=== PATIENT | female | born 1940 | race Caucasian/White ===

== ENCOUNTER 2020-09-17 10:42 | Inpatient (IN) | payer OTHER ==
[~2020-09-17] VITALS: Ht 165.1 cm; Wt 78.7 kg
[~2020-09-17 10:42] MED LIST: AMLO10TA13; CALC-332 OR; CEFD300C2; CHOL50006 PO; CRANPOW XX; FLUT110A; HYDR500T13; LOSA-39; MAGN250T19 PO; OMEG100078 PO; ZINC50TA27 PO
[2020-09-17] MEDS ORDERED: SODIUM CHLORIDE 0.9% 1,000 ML IVB ONE (12:15)
[2020-09-17] MEDS ORDERED: PANTOPRAZOLE 40 MG/10 ML VIAL INJ IV ONE ×2 (12:15→17:15)
[2020-09-17 12:25] LABS: Basophils # (auto) 0 10 ^3/uL (0-0.2); Basophils % (auto) 0.2 % (0.0-2.0); Eosinophils # (auto) 0 10 ^3/uL (0-0.8); Eosinophils % (auto) 0.1 % (0.0-7.0); Hematocrit 38.9 % (36.0-46.0); Hemoglobin 13.2 g/dL (12.2-16.2); Lymphocytes # (auto) 0.8 10 ^3/uL (0.4-5.4); Lymphocytes % (auto) 12.3 % (10.0-50.0); Mean Corpuscular Hemoglobin 30.8 pg (28.0-32.0); Mean Corpuscular Hgb Conc. 33.9 g/dL (32.0-36.0); Mean Corpuscular Volume 90.9 fL (80.0-100.0); Monocytes # (auto) 0.5 10 ^3/uL (0-1.3); Monocytes % (auto) 8.1 % (0.0-12.0); Neutrophils % (auto) 79.3 % (37.0-80.0); Nucleated Red Blood Cells % 0.1 %; Platelet Count (auto) 194 10^3/uL (140-450); Red Blood Cells 4.28 10^6/uL (4.0-5.20); Red Cell Distribution Width 13.5 % (11.8-14.3); White Blood Cell 6.3 10^3/uL (4.4-10.8)
[2020-09-17 12:45] LABS: INR 2.9 (0.9-1.15); Partial Thromboplastin Time 54.1 sec (23.0-31.2)
[2020-09-17 13:37] LABS: Chloride 101 mmol/L (98-107); Potassium 4.3 mmol/L (3.5-5.1); Sodium 133 mmol/L (136-145)
[2020-09-17 13:58] LABS: Alanine Aminotransferase 28 U/L (13-56); Albumin 2.9 g/dL (3.4-5.0); Alkaline Phosphatase 56 U/L (45-117); Anion Gap 6 (5-15); Aspartate Aminotransferase 35 U/L (15-37); Bilirubin, Total 0.3 mg/dL (0.2-1.0); Blood Urea Nitrogen 10 mg/dL (7-18); Calcium 8.2 mg/dL (8.5-10.1); Carbon Dioxide 26 mmol/L (21-32); GFR African American 93 mL/min; GFR Non-African American 77 mL/min; Glucose 98 mg/dL (74-106); Total Protein 6.8 g/dL (6.4-8.2)
[2020-09-17] MEDS ORDERED: AZITHROMYCIN 500MG/ 250ML 250 ML IV ONE (14:00)
[2020-09-17 14:32] LABS: Magnesium 2.7 mg/dL (1.6-2.6)
[2020-09-17] MEDS ORDERED: metroNIDAZOLE 500MG/100ML 100 ML IV ONE (14:45)
[2020-09-17] MEDS ORDERED: MORPHINE SULF INJ 2 MG/ML SYRINGE 1ML IV PRN (16:00)
[2020-09-17] MEDS ORDERED: NITROGLYCERIN 0.4 MG SL TAB SL PRN (16:00)
[2020-09-17] MEDS ORDERED: LACTULOSE 20Gm/30ML SOLN PO PRN (17:15)
[2020-09-17] MEDS ORDERED: ACETAMINOPHEN 500 MG TAB PO PRN (17:15)
[2020-09-17] MEDS: DOXYCYCLINE 100MG/250ML 250 ML IV SCH (18:50)
[2020-09-17] MEDS: SODIUM CHLORIDE 0.9% 1,000 ML IV SCH (18:52)
[2020-09-17] MEDS ORDERED: diphenhdrAMINE HCL 50 MG/1 ML VL IV PRN (19:00)
[2020-09-17] MEDS ORDERED: REMDESIVIR PER PHARMACY 0 ML IV SCH (19:00)
[2020-09-17] MEDS: MORPHINE SULF INJ 2 MG/ML SYRINGE 1ML IV PRN (20:11)
[2020-09-17] MEDS: ONDANSETRON HCL 4 MG/2 ML VIAL IV PRN (20:12)
[2020-09-17] MEDS: BUDESONIDE (INHALATION) 180 MCG IH IN SCH (22:00)
[2020-09-17] MEDS ORDERED: ENOXAPARIN SOD 40 MG/0.4 ML SYRINGE SC SCH (22:00)
[2020-09-17] MEDS: FAMOTIDINE (10MG/ML) 2ML VL IV SCH (22:35)
[2020-09-17] MEDS: traMADol HCL 50 MG TAB PO PRN (23:08)
[2020-09-17 23:59] LABS: Hematocrit 38.9 % (36.0-46.0); Hemoglobin 12.9 g/dL (12.2-16.2)
[2020-09-18] MEDS: metroNIDAZOLE 500MG/100ML 100 ML IV SCH ×4 (01:00→23:30)
[2020-09-18] MEDS: DOXYCYCLINE 100MG/250ML 250 ML IV SCH ×2 (05:12→20:28)
[2020-09-18] MEDS: SODIUM CHLORIDE 0.9% 1,000 ML IV SCH ×2 (06:35→20:29)
[2020-09-18] MEDS: traMADol HCL 50 MG TAB PO PRN (07:11)
[2020-09-18 07:48] LABS: Basophils # (auto) 0 10 ^3/uL (0-0.2); Basophils % (auto) 0.4 % (0.0-2.0); Eosinophils # (auto) 0 10 ^3/uL (0-0.8); Eosinophils % (auto) 0.4 % (0.0-7.0); Lymphocytes # (auto) 1.1 10 ^3/uL (0.4-5.4); Lymphocytes % (auto) 19.2 % (10.0-50.0); Mean Corpuscular Hemoglobin 30.3 pg (28.0-32.0); Mean Corpuscular Hgb Conc. 33.5 g/dL (32.0-36.0); Mean Corpuscular Volume 90.6 fL (80.0-100.0); Monocytes # (auto) 0.7 10 ^3/uL (0-1.3); Monocytes % (auto) 12.6 % (0.0-12.0); Neutrophils # (auto) 3.7 10 ^3/uL (1.6-8.6); Neutrophils % (auto) 67.4 % (37.0-80.0); Platelet Count (auto) 175 10^3/uL (140-450); Red Blood Cells 3.97 10^6/uL (4.0-5.20); Red Cell Distribution Width 13.3 % (11.8-14.3); White Blood Cell 5.6 10^3/uL (4.4-10.8)
[2020-09-18 07:55] LABS: Potassium 3.7 mmol/L (3.5-5.1)
[2020-09-18 08:01] LABS: Albumin 2.5 g/dL (3.4-5.0); BUN/Creatinine Ratio 15.9; Bilirubin, Total 0.2 mg/dL (0.2-1.0); Calcium 7.2 mg/dL (8.5-10.1); Total Protein 5.8 g/dL (6.4-8.2)
[2020-09-18] MEDS: PANTOPRAZOLE 40 MG TAB PO SCH ×2 (09:31→22:04)
[2020-09-18] MEDS: FAMOTIDINE (10MG/ML) 2ML VL IV SCH ×2 (09:31→22:04)
[2020-09-18] MEDS: CHOLECALCIFEROL (VITD3) 2,000 UNIT CAP PO SCH (09:31)
[2020-09-18] MEDS: ZINC SULFATE 220mg CAP or TAB PO SCH (09:31)
[2020-09-18] MEDS: DexAMETHasone SOD PHOS 10MG/1ML VIAL INJ IV SCH (09:31)
[2020-09-18] MEDS: ASCORBIC ACID 1,000 MG TAB PO SCH (09:31)
[2020-09-18] MEDS: BUDESONIDE (INHALATION) 180 MCG IH IN SCH ×2 (12:35→21:18)
[2020-09-18] MEDS ORDERED: REMDESIVIR 200 MG in NS 210ml LOADING DOSE ADULT IV ONE (15:00)
[2020-09-18] MEDS: ALBUTEROL SULF HFA 90MCG INH 200DOSE IN PRN (21:19)
[2020-09-18 22:00] VITALS: BP 117/62
[2020-09-19] MEDS: DOXYCYCLINE 100MG/250ML 250 ML IV SCH ×2 (05:03→21:01)
[2020-09-19 06:00] VITALS: BP 113/66
[2020-09-19] MEDS: MORPHINE SULF INJ 2 MG/ML SYRINGE 1ML IV PRN (07:15)
[2020-09-19] MEDS: metroNIDAZOLE 500MG/100ML 100 ML IV SCH ×3 (07:22→23:39)
[2020-09-19 07:51] LABS: Basophils # (auto) 0 10 ^3/uL (0-0.2); Basophils % (auto) 0.1 % (0.0-2.0); Eosinophils # (auto) 0 10 ^3/uL (0-0.8); Hematocrit 37.2 % (36.0-46.0); Hemoglobin 12.7 g/dL (12.2-16.2); Lymphocytes # (auto) 0.8 10 ^3/uL (0.4-5.4); Lymphocytes % (auto) 9.5 % (10.0-50.0); Mean Corpuscular Hemoglobin 30.7 pg (28.0-32.0); Mean Corpuscular Hgb Conc. 34.1 g/dL (32.0-36.0); Mean Corpuscular Volume 90.2 fL (80.0-100.0); Monocytes % (auto) 12.1 % (0.0-12.0); Neutrophils # (auto) 6.7 10 ^3/uL (1.6-8.6); Neutrophils % (auto) 78.3 % (37.0-80.0); Platelet Count (auto) 214 10^3/uL (140-450); Red Blood Cells 4.12 10^6/uL (4.0-5.20); Red Cell Distribution Width 13.1 % (11.8-14.3); White Blood Cell 8.5 10^3/uL (4.4-10.8)
[2020-09-19 08:09] LABS: INR 3.36 (0.9-1.15); Partial Thromboplastin Time 59.9 sec (23.0-31.2)
[2020-09-19 08:13] LABS: Potassium 3.8 mmol/L (3.5-5.1)
[2020-09-19 08:23] LABS: Albumin 2.5 g/dL (3.4-5.0); BUN/Creatinine Ratio 15.5; Bilirubin, Total 0.3 mg/dL (0.2-1.0); Magnesium 2.4 mg/dL (1.6-2.6); Total Protein 6.5 g/dL (6.4-8.2)
[2020-09-19] MEDS: BUDESONIDE (INHALATION) 180 MCG IH IN SCH ×2 (10:00→22:24)
[2020-09-19] MEDS: ALBUTEROL SULF HFA 90MCG INH 200DOSE IN PRN (10:00)
[2020-09-19] MEDS: PANTOPRAZOLE 40 MG TAB PO SCH ×2 (12:35→22:15)
[2020-09-19] MEDS: CHOLECALCIFEROL (VITD3) 2,000 UNIT CAP PO SCH (12:35)
[2020-09-19] MEDS: ASCORBIC ACID 1,000 MG TAB PO SCH (12:35)
[2020-09-19] MEDS: ZINC SULFATE 220mg CAP or TAB PO SCH (12:36)
[2020-09-19] MEDS: SODIUM CHLORIDE 0.9% 1,000 ML IV SCH ×2 (13:01→23:40)
[2020-09-19] MEDS: DexAMETHasone SOD PHOS 10MG/1ML VIAL INJ IV SCH (13:02)
[2020-09-19] MEDS: FAMOTIDINE (10MG/ML) 2ML VL IV SCH ×2 (13:02→22:18)
[2020-09-19] MEDS: REMDESIVIR 100 MG in SODIUM CHL 0.9% 250 ML IV SCH (17:49)
[2020-09-19 23:03] VITALS: BP 115/75
[2020-09-19 23:10] VITALS: BP 115/75
[2020-09-20] MEDS ORDERED: DEXL60CA4 PO (01:21)
[2020-09-20] MEDS ORDERED: CHOL20007 PO (01:21)
[2020-09-20] MEDS ORDERED: WARF2TAB49 PO (01:21)
[2020-09-20] MEDS ORDERED: BUDE0.5S IN (01:21)
[2020-09-20] MEDS ORDERED: MULTPOW OR (01:21)
[2020-09-20] MEDS ORDERED: MAGN400C2 PO (01:21)
[2020-09-20] MEDS ORDERED: LATA0.0019 EACHEYE (01:21)
[2020-09-20] MEDS ORDERED: CALC667C5 PO (01:21)
[2020-09-20] MEDS ORDERED: GEN03OS EACH EAR (01:21)
[2020-09-20] MEDS ORDERED: HYDR-4833 PO (01:21)
[2020-09-20] MEDS ORDERED: LOSA-39 PO (01:21)
[2020-09-20] MEDS ORDERED: AML5T PO (01:21)
[2020-09-20] MEDS ORDERED: ASCO250C8 PO (01:21)
[2020-09-20] MEDS ORDERED: MULT-551 OR (01:22)
[2020-09-20] MEDS: traMADol HCL 50 MG TAB PO PRN ×3 (03:46→18:51)
[2020-09-20] MEDS: DOXYCYCLINE 100MG/250ML 250 ML IV SCH ×2 (05:08→17:01)
[2020-09-20 06:11] LABS: Potassium 3.7 mmol/L (3.5-5.1)
[2020-09-20 06:23] LABS: Albumin 2.6 g/dL (3.4-5.0); Bilirubin, Total 0.3 mg/dL (0.2-1.0); Total Protein 6.2 g/dL (6.4-8.2)
[2020-09-20] MEDS: metroNIDAZOLE 500MG/100ML 100 ML IV SCH ×4 (08:42→23:20)
[2020-09-20] MEDS: DexAMETHasone SOD PHOS 10MG/1ML VIAL INJ IV SCH (08:57)
[2020-09-20] MEDS: FAMOTIDINE (10MG/ML) 2ML VL IV SCH ×3 (08:57→23:21)
[2020-09-20] MEDS: ASCORBIC ACID 1,000 MG TAB PO SCH ×2 (08:59→09:12)
[2020-09-20] MEDS: CHOLECALCIFEROL (VITD3) 2,000 UNIT CAP PO SCH ×2 (08:59→09:12)
[2020-09-20] MEDS: PANTOPRAZOLE 40 MG TAB PO SCH ×3 (08:59→22:16)
[2020-09-20] MEDS: ZINC SULFATE 220mg CAP or TAB PO SCH ×2 (09:00→09:11)
[2020-09-20] MEDS: BUDESONIDE (INHALATION) 180 MCG IH IN SCH (10:00)
[2020-09-20] MEDS ORDERED: ALBU1.257 IN (10:13)
[2020-09-20] MEDS: SODIUM CHLORIDE 0.9% 1,000 ML IV SCH (11:55)
[2020-09-20 13:00] VITALS: BP 137/70
[2020-09-20] MEDS ORDERED: ALBUTEROL SULF 2.5 MG/0.5ML(0.5%) NEB SOLN NEB PRN ×2 (14:45→15:30)
[2020-09-20] MEDS: REMDESIVIR 100 MG in SODIUM CHL 0.9% 250 ML IV SCH (15:00)
[2020-09-21] VITALS: BP 157/76
[2020-09-21] MEDS: SODIUM CHLORIDE 0.9% 1,000 ML IV SCH ×3 (01:40→23:29)
[2020-09-21] MEDS: metroNIDAZOLE 500MG/100ML 100 ML IV SCH ×3 (06:01→22:06)
[2020-09-21 06:13] LABS: Hematocrit 39.6 % (36.0-46.0); Hemoglobin 13.2 g/dL (12.2-16.2); Mean Corpuscular Hemoglobin 30.2 pg (28.0-32.0); Mean Corpuscular Hgb Conc. 33.4 g/dL (32.0-36.0); Mean Corpuscular Volume 90.6 fL (80.0-100.0); Platelet Count (auto) 352 10^3/uL (140-450); Red Blood Cells 4.38 10^6/uL (4.0-5.20); Red Cell Distribution Width 13.4 % (11.8-14.3); White Blood Cell 10.3 10^3/uL (4.4-10.8)
[2020-09-21 06:22] LABS: Basophils % (manual) 0 (0.0-2.0); Blast Cells 0; Eosinophils % (manual) 0 (0-7); Metamyelocytes % 0; Myelocytes % 0; Promyelocytes % 0; Reactive Lymphocytes 0
[2020-09-21 06:22] LABS: Albumin 2.6 g/dL (3.4-5.0); Potassium 3.4 mmol/L (3.5-5.1)
[2020-09-21 06:28] LABS: Bilirubin, Total 0.4 mg/dL (0.2-1.0); Calcium 8.1 mg/dL (8.5-10.1); Magnesium 1.9 mg/dL (1.6-2.6); Total Protein 6.2 g/dL (6.4-8.2)
[2020-09-21] MEDS: ALBUTEROL SULF 2.5 MG/0.5ML(0.5%) NEB SOLN NEB SCH ×2 (06:47→10:00)
[2020-09-21 07:17] LABS: Band Neutrophils % (manual) 3; Lymphocytes % (manual) 10 (10.0-50.0); Monocytes % (manual) 9 (0-12)
[2020-09-21] MEDS: DOXYCYCLINE 100MG/250ML 250 ML IV SCH ×2 (07:40→16:55)
[2020-09-21] MEDS: ONDANSETRON HCL 4 MG/2 ML VIAL IV PRN ×2 (08:17→17:23)
[2020-09-21 09:00] VITALS: BP 138/70
[2020-09-21] MEDS ORDERED: POTASSIUM CHL 20 Meq TABLET PO ONE (09:30)
[2020-09-21] MEDS: ZINC SULFATE 220mg CAP or TAB PO SCH (09:52)
[2020-09-21] MEDS: CHOLECALCIFEROL (VITD3) 2,000 UNIT CAP PO SCH (09:52)
[2020-09-21] MEDS: ASCORBIC ACID 1,000 MG TAB PO SCH (09:52)
[2020-09-21] MEDS: PANTOPRAZOLE 40 MG TAB PO SCH ×2 (09:52→22:00)
[2020-09-21] MEDS: DexAMETHasone SOD PHOS 10MG/1ML VIAL INJ IV SCH (10:00)
[2020-09-21] MEDS: BUDESONIDE (INHALATION) 180 MCG IH IN SCH ×2 (10:00→19:51)
[2020-09-21] MEDS: FAMOTIDINE (10MG/ML) 2ML VL IV SCH (10:00)
[2020-09-21 13:00] VITALS: BP 144/66
[2020-09-21] MEDS: REMDESIVIR 100 MG in SODIUM CHL 0.9% 250 ML IV SCH (15:00)
[2020-09-21 16:00] VITALS: BP 144/57
[2020-09-21] MEDS: traMADol HCL 50 MG TAB PO PRN (18:18)
[2020-09-21] MEDS: ALBUTEROL SULF HFA 90MCG INH 200DOSE IN PRN (19:51)
[2020-09-21] MEDS: PANTOPRAZOLE 40 MG/10 ML VIAL INJ IV SCH (22:07)
[2020-09-22] VITALS: BP 143/72
[2020-09-22] MEDS: DOXYCYCLINE 100MG/250ML 250 ML IV SCH ×2 (04:58→17:12)
[2020-09-22] MEDS: BUDESONIDE (INHALATION) 180 MCG IH IN SCH (06:47)
[2020-09-22 06:51] LABS: Hemoglobin 13.7 g/dL (12.2-16.2); Mean Corpuscular Hemoglobin 30.2 pg (28.0-32.0); Mean Corpuscular Hgb Conc. 33.5 g/dL (32.0-36.0); Platelet Count (auto) 372 10^3/uL (140-450); Red Blood Cells 4.55 10^6/uL (4.0-5.20); Red Cell Distribution Width 13.5 % (11.8-14.3); White Blood Cell 12.6 10^3/uL (4.4-10.8)
[2020-09-22] MEDS: metroNIDAZOLE 500MG/100ML 100 ML IV SCH ×3 (06:52→22:35)
[2020-09-22 07:12] LABS: Potassium 3.6 mmol/L (3.5-5.1)
[2020-09-22 07:45] LABS: Albumin 2.7 g/dL (3.4-5.0); BUN/Creatinine Ratio 26.6; Bilirubin, Total 0.5 mg/dL (0.2-1.0); Calcium 8.2 mg/dL (8.5-10.1); Total Protein 6.4 g/dL (6.4-8.2)
[2020-09-22 07:57] LABS: Basophils % (manual) 0 (0.0-2.0); Blast Cells 0; Eosinophils % (manual) 0 (0-7); Metamyelocytes % 0; Myelocytes % 0; Promyelocytes % 0; Reactive Lymphocytes 0
[2020-09-22 08:00] VITALS: BP 149/65
[2020-09-22] MEDS: ALBUTEROL SULF 2.5 MG/0.5ML(0.5%) NEB SOLN NEB SCH (10:00)
[2020-09-22] MEDS: ZINC SULFATE 220mg CAP or TAB PO SCH (10:33)
[2020-09-22] MEDS: PANTOPRAZOLE 40 MG TAB PO SCH ×2 (10:33→20:51)
[2020-09-22] MEDS: DexAMETHasone SOD PHOS 10MG/1ML VIAL INJ IV SCH (10:33)
[2020-09-22] MEDS: PANTOPRAZOLE 40 MG/10 ML VIAL INJ IV SCH ×2 (10:33→22:35)
[2020-09-22] MEDS: ASCORBIC ACID 1,000 MG TAB PO SCH (10:33)
[2020-09-22] MEDS: CHOLECALCIFEROL (VITD3) 2,000 UNIT CAP PO SCH (10:34)
[2020-09-22 12:36] LABS: Band Neutrophils % (manual) 11; Lymphocytes % (manual) 16 (10.0-50.0); Monocytes % (manual) 8 (0-12)
[2020-09-22] MEDS ORDERED: ALPRAZolam 0.25 MG TAB PO PRN (14:00)
[2020-09-22] MEDS: REMDESIVIR 100 MG in SODIUM CHL 0.9% 250 ML IV SCH (15:23)
[2020-09-22 16:00] VITALS: BP 153/81
[2020-09-22] MEDS: MORPHINE SULF INJ 2 MG/ML SYRINGE 1ML IV PRN (16:20)
[2020-09-22] MEDS: SODIUM CHLORIDE 0.9% 1,000 ML IV SCH (17:12)
[2020-09-22] MEDS: Ensure Enlive Strawberry 8oz Bottle PO SCH (17:54)
[2020-09-22] MEDS: ONDANSETRON HCL 4 MG/2 ML VIAL IV PRN (20:50)
[2020-09-23] VITALS: BP 144/72
[2020-09-23] MEDS: DOXYCYCLINE 100MG/250ML 250 ML IV SCH ×2 (04:30→19:22)
[2020-09-23] MEDS: SODIUM CHLORIDE 0.9% 1,000 ML IV SCH ×2 (06:35→19:55)
[2020-09-23] MEDS: metroNIDAZOLE 500MG/100ML 100 ML IV SCH ×3 (06:45→21:12)
[2020-09-23 08:00] VITALS: BP 148/67
[2020-09-23] MEDS: MORPHINE SULF INJ 2 MG/ML SYRINGE 1ML IV PRN ×3 (09:01→20:58)
[2020-09-23] MEDS: PANTOPRAZOLE 40 MG TAB PO SCH ×2 (09:12→21:12)
[2020-09-23] MEDS: PANTOPRAZOLE 40 MG/10 ML VIAL INJ IV SCH ×2 (09:12→21:12)
[2020-09-23] MEDS: Ensure Enlive Strawberry 8oz Bottle PO SCH ×3 (09:13→18:42)
[2020-09-23] MEDS: DexAMETHasone SOD PHOS 10MG/1ML VIAL INJ IV SCH (09:13)
[2020-09-23] MEDS: ZINC SULFATE 220mg CAP or TAB PO SCH ×2 (09:13→09:33)
[2020-09-23] MEDS: ASCORBIC ACID 1,000 MG TAB PO SCH (09:14)
[2020-09-23] MEDS: CHOLECALCIFEROL (VITD3) 2,000 UNIT CAP PO SCH (09:14)
[2020-09-23] MEDS: BUDESONIDE (INHALATION) 180 MCG IH IN SCH (14:01)
[2020-09-23] MEDS: ALBUTEROL SULF 2.5 MG/0.5ML(0.5%) NEB SOLN NEB SCH (15:15)
[2020-09-23 16:00] VITALS: BP 145/76
[2020-09-23] MEDS: REMDESIVIR 100 MG in SODIUM CHL 0.9% 250 ML IV SCH (18:42)
[2020-09-23 20:00] VITALS: BP 146/60
[2020-09-23 22:00] VITALS: BP 146/60
[2020-09-24] MEDS: DOXYCYCLINE 100MG/250ML 250 ML IV SCH ×2 (04:45→17:07)
[2020-09-24 05:27] LABS: Potassium 3.3 mmol/L (3.5-5.1)
[2020-09-24 05:30] LABS: INR 2.55 (0.9-1.15)
[2020-09-24 05:31] LABS: Albumin 2.4 g/dL (3.4-5.0); BUN/Creatinine Ratio 33.9; Calcium 7.8 mg/dL (8.5-10.1)
[2020-09-24 05:34] LABS: Bilirubin, Total 0.5 mg/dL (0.2-1.0); Total Protein 5.8 g/dL (6.4-8.2)
[2020-09-24] MEDS: metroNIDAZOLE 500MG/100ML 100 ML IV SCH ×3 (06:38→21:42)
[2020-09-24 08:00] VITALS: BP 156/73
[2020-09-24] MEDS: DexAMETHasone SOD PHOS 10MG/1ML VIAL INJ IV SCH (08:58)
[2020-09-24] MEDS: PANTOPRAZOLE 40 MG/10 ML VIAL INJ IV SCH ×2 (08:58→21:42)
[2020-09-24] MEDS: ASCORBIC ACID 1,000 MG TAB PO SCH (08:58)
[2020-09-24] MEDS: PANTOPRAZOLE 40 MG TAB PO SCH ×2 (08:58→20:52)
[2020-09-24] MEDS: CHOLECALCIFEROL (VITD3) 2,000 UNIT CAP PO SCH (08:59)
[2020-09-24] MEDS: Ensure Enlive Strawberry 8oz Bottle PO SCH ×3 (09:09→18:05)
[2020-09-24] MEDS: BUDESONIDE (INHALATION) 180 MCG IH IN SCH ×3 (09:11→19:45)
[2020-09-24] MEDS: ALBUTEROL SULF 2.5 MG/0.5ML(0.5%) NEB SOLN NEB SCH ×3 (09:11→19:45)
[2020-09-24] MEDS: MORPHINE SULF INJ 2 MG/ML SYRINGE 1ML IV PRN ×3 (09:20→20:29)
[2020-09-24] MEDS: ZINC SULFATE 220mg CAP or TAB PO SCH (10:00)
[2020-09-24] MEDS: SODIUM CHLORIDE 0.9% 1,000 ML IV SCH ×2 (11:51→21:43)
[2020-09-24] MEDS ORDERED: POTASSIUM CHL 20 Meq TABLET PO ONE (12:45)
[2020-09-24 15:41] VITALS: BP 151/76
[2020-09-25] VITALS: BP 155/79
[2020-09-25] MEDS: DOXYCYCLINE 100MG/250ML 250 ML IV SCH ×2 (04:15→16:59)
[2020-09-25] MEDS: metroNIDAZOLE 500MG/100ML 100 ML IV SCH ×3 (06:24→21:29)
[2020-09-25 06:43] LABS: Potassium 3.7 mmol/L (3.5-5.1)
[2020-09-25 06:51] LABS: Albumin 2.4 g/dL (3.4-5.0); BUN/Creatinine Ratio 28.8; Bilirubin, Total 0.5 mg/dL (0.2-1.0); Calcium 7.7 mg/dL (8.5-10.1); Total Protein 5.7 g/dL (6.4-8.2)
[2020-09-25] MEDS: BUDESONIDE (INHALATION) 180 MCG IH IN SCH ×2 (07:23→19:30)
[2020-09-25 08:00] VITALS: BP 146/68
[2020-09-25] MEDS: Ensure Enlive Strawberry 8oz Bottle PO SCH ×3 (08:00→17:59)
[2020-09-25] MEDS: MORPHINE SULF INJ 2 MG/ML SYRINGE 1ML IV PRN ×3 (08:05→20:39)
[2020-09-25] MEDS: ZINC SULFATE 220mg CAP or TAB PO SCH (10:00)
[2020-09-25] MEDS: CHOLECALCIFEROL (VITD3) 2,000 UNIT CAP PO SCH (10:43)
[2020-09-25] MEDS: DexAMETHasone SOD PHOS 10MG/1ML VIAL INJ IV SCH (10:43)
[2020-09-25] MEDS: PANTOPRAZOLE 40 MG/10 ML VIAL INJ IV SCH ×2 (10:43→21:29)
[2020-09-25] MEDS: PANTOPRAZOLE 40 MG TAB PO SCH ×2 (10:44→21:29)
[2020-09-25] MEDS: SODIUM CHLORIDE 0.9% 1,000 ML IV SCH (10:44)
[2020-09-25] MEDS: ASCORBIC ACID 1,000 MG TAB PO SCH (10:44)
[2020-09-25 16:00] VITALS: BP 147/69
[2020-09-25] MEDS: ALBUTEROL SULF HFA 90MCG INH 200DOSE IN PRN (19:30)
[2020-09-25] MEDS: ALBUTEROL SULF 2.5 MG/0.5ML(0.5%) NEB SOLN NEB SCH (20:20)
[2020-09-26] VITALS: BP 133/77
[2020-09-26] MEDS: DOXYCYCLINE 100MG/250ML 250 ML IV SCH ×2 (04:15→16:55)
[2020-09-26] MEDS: MORPHINE SULF INJ 2 MG/ML SYRINGE 1ML IV PRN ×3 (04:15→17:04)
[2020-09-26] MEDS: metroNIDAZOLE 500MG/100ML 100 ML IV SCH ×3 (06:22→21:58)
[2020-09-26 09:00] VITALS: BP 134/58
[2020-09-26] MEDS: ALBUTEROL SULF HFA 90MCG INH 200DOSE IN PRN ×2 (09:54→20:32)
[2020-09-26] MEDS: BUDESONIDE (INHALATION) 180 MCG IH IN SCH ×2 (09:54→18:43)
[2020-09-26] MEDS: PANTOPRAZOLE 40 MG TAB PO SCH ×2 (10:00→21:59)
[2020-09-26] MEDS: ZINC SULFATE 220mg CAP or TAB PO SCH ×2 (10:00→11:11)
[2020-09-26] MEDS: PANTOPRAZOLE 40 MG/10 ML VIAL INJ IV SCH ×2 (11:11→21:58)
[2020-09-26] MEDS: CHOLECALCIFEROL (VITD3) 2,000 UNIT CAP PO SCH (11:12)
[2020-09-26] MEDS: Ensure Enlive Strawberry 8oz Bottle PO SCH ×3 (11:12→18:35)
[2020-09-26] MEDS: DexAMETHasone SOD PHOS 10MG/1ML VIAL INJ IV SCH (11:12)
[2020-09-26] MEDS: ASCORBIC ACID 1,000 MG TAB PO SCH (11:12)
[2020-09-26] MEDS ORDERED: FUROSEMIDE 20 MG/2 ML VIAL IV ONE (15:15)
[2020-09-26 17:00] VITALS: BP 152/73
[2020-09-27] VITALS: BP 142/70
[2020-09-27] MEDS: DOXYCYCLINE 100MG/250ML 250 ML IV SCH (04:59)
[2020-09-27] MEDS: metroNIDAZOLE 500MG/100ML 100 ML IV SCH ×2 (06:30→14:37)
[2020-09-27] MEDS: BUDESONIDE (INHALATION) 180 MCG IH IN SCH (06:41)
[2020-09-27] MEDS: ALBUTEROL SULF HFA 90MCG INH 200DOSE IN PRN (07:54)
[2020-09-27 08:00] VITALS: BP 155/76
[2020-09-27] MEDS: PANTOPRAZOLE 40 MG TAB PO SCH ×2 (08:52→21:42)
[2020-09-27] MEDS: Ensure Enlive Strawberry 8oz Bottle PO SCH ×3 (08:52→17:53)
[2020-09-27] MEDS: ZINC SULFATE 220mg CAP or TAB PO SCH (09:00)
[2020-09-27] MEDS: PANTOPRAZOLE 40 MG/10 ML VIAL INJ IV SCH ×2 (09:00→22:00)
[2020-09-27] MEDS: DexAMETHasone SOD PHOS 10MG/1ML VIAL INJ IV SCH (09:00)
[2020-09-27] MEDS: CHOLECALCIFEROL (VITD3) 2,000 UNIT CAP PO SCH (09:01)
[2020-09-27] MEDS: ASCORBIC ACID 1,000 MG TAB PO SCH (09:01)
[2020-09-27] MEDS: MORPHINE SULF INJ 2 MG/ML SYRINGE 1ML IV PRN ×2 (09:01→18:35)
[2020-09-27 16:00] VITALS: BP 125/66
[2020-09-27] MEDS: DOXYCYCLINE 100 MG TAB/CAP PO SCH (21:42)
[2020-09-27] MEDS: metroNIDAZOLE 500 MG TAB PO SCH (21:42)
[2020-09-28] VITALS: BP 102/73
[2020-09-28 01:05] VITALS: BP 160/83
[2020-09-28] MEDS: BUDESONIDE (INHALATION) 180 MCG IH IN SCH ×2 (01:21→06:29)
[2020-09-28] MEDS: metroNIDAZOLE 500 MG TAB PO SCH ×2 (06:35→14:00)
[2020-09-28] MEDS: ALBUTEROL SULF HFA 90MCG INH 200DOSE IN PRN (07:16)
[2020-09-28 08:00] VITALS: BP 146/74
[2020-09-28] MEDS: DOXYCYCLINE 100 MG TAB/CAP PO SCH (09:08)
[2020-09-28] MEDS: PANTOPRAZOLE 40 MG/10 ML VIAL INJ IV SCH (09:08)
[2020-09-28] MEDS: ASCORBIC ACID 1,000 MG TAB PO SCH (09:08)
[2020-09-28] MEDS: CHOLECALCIFEROL (VITD3) 2,000 UNIT CAP PO SCH (09:09)
[2020-09-28] MEDS: Ensure Enlive Strawberry 8oz Bottle PO SCH ×2 (09:12→16:30)
[2020-09-28] MEDS: PANTOPRAZOLE 40 MG TAB PO SCH (09:12)
[2020-09-28] MEDS: ZINC SULFATE 220mg CAP or TAB PO SCH (09:12)
[2020-09-28 12:20] VITALS: BP 146/74
== END 2020-09-28 16:00 | disposition home health service (06) | DRG 177 ==
LOC: ER 10:42 → TELE 16:00 → TELE-WESTW 09-19 23:03
PROVIDERS: ADMIT Internal Medicine; ATTEND Internal Medicine Geriatric Medicine
PROC: XW033E5 Introduction of Remdesivir Anti-infective into Peripheral Vein, Percutaneous Approach, New Technology Group 5 (ICD-10-PCS; 2020-09-18)
PROC: 05HC33Z Insertion of Infusion Device into Left Basilic Vein, Percutaneous Approach (ICD-10-PCS; principal; 2020-09-24)
PROC: B54NZZA Ultrasonography of Left Upper Extremity Veins, Guidance (ICD-10-PCS; 2020-09-24)
PROC: 5A09357 Assistance with Respiratory Ventilation, Less than 24 Consecutive Hours, Continuous Positive Airway Pressure (ICD-10-PCS; 2020-09-26)
PROC: 5A09357 Assistance with Respiratory Ventilation, Less than 24 Consecutive Hours, Continuous Positive Airway Pressure (ICD-10-PCS; 2020-09-27)
DX: U07.1 COVID-19 (principal); J12.89 Other viral pneumonia; J96.21 Acute and chronic respiratory failure with hypoxia; E87.1 Hypo-osmolality and hyponatremia; D68.9 Coagulation defect, unspecified; J44.0 Chronic obstructive pulmonary disease with (acute) lower respiratory infection; J98.11 Atelectasis; F41.9 Anxiety disorder, unspecified; E66.9 Obesity, unspecified; K52.9 Noninfective gastroenteritis and colitis, unspecified; I10 Essential (primary) hypertension; E78.5 Hyperlipidemia, unspecified; Z68.30 Body mass index [BMI] 30.0-30.9, adult; Z88.1 Allergy status to other antibiotic agents; Z88.5 Allergy status to narcotic agent; Z88.8 Allergy status to other drugs, medicaments and biological substances; Z79.899 Other long term (current) drug therapy; Z86.711 Personal history of pulmonary embolism; Z90.710 Acquired absence of both cervix and uterus; Z99.81 Dependence on supplemental oxygen; Z90.49 Acquired absence of other specified parts of digestive tract
CPT/HCPCS: 36415; 71045; 74176; 80053; 82270; 82378; 83605; 83690; 83735; 84484; 85007; 85014; 85018; 85025; 85027; 85045; 85610; 85652; 85730; 86141; 87040; 87045; 87426; 87427; 87493; 93005; 94640; 96361; 96365; 96375; C9113; G0378; J1100; J2405; J3490

== ENCOUNTER 2022-01-30 22:13 | Inpatient (IN) | payer OTHER ==
[~2022-01-30] VITALS: Ht 162.6 cm; Wt 53.3 kg
[~2022-01-30 22:13] MED LIST changes: +ALBU1.257 IN; +AML5T PO; -AMLO10TA13; +ASCO250C8 PO; +BUDE0.5S IN; -CALC-332 OR; +CALC667C5 PO; -CEFD300C2; +CHOL20007 PO; -CHOL50006 PO; -CRANPOW XX; +DEXL60CA4 PO; -FLUT110A; +GEN03OS EACH EAR; +HYDR-4833 PO; -HYDR500T13; +LATA0.0019 EACHEYE; -LOSA-39; +LOSA-39 PO; -MAGN250T19 PO; +MAGN400C2 PO; +MULT-551 OR; +MULTPOW OR; -OMEG100078 PO; +WARF2TAB49 PO; -ZINC50TA27 PO
[2022-01-30 22:15] VITALS: BP 120/48
[2022-01-30 23:32] LABS: Basophils # (auto) 0 10 ^3/uL (0-0.2); Basophils % (auto) 0.2 % (0.0-2.0); Eosinophils # (auto) 0 10 ^3/uL (0-0.8); Hematocrit 42.2 % (36.0-46.0); Hemoglobin 14.1 g/dL (12.2-16.2); Lymphocytes # (auto) 0.6 10 ^3/uL (0.4-5.4); Lymphocytes % (auto) 3.9 % (10.0-50.0); Mean Corpuscular Hemoglobin 30.4 pg (28.0-32.0); Mean Corpuscular Hgb Conc. 33.5 g/dL (32.0-36.0); Mean Corpuscular Volume 90.8 fL (80.0-100.0); Monocytes # (auto) 1.1 10 ^3/uL (0-1.3); Monocytes % (auto) 7.2 % (0.0-12.0); Neutrophils % (auto) 88.7 % (37.0-80.0); Red Blood Cells 4.64 10^6/uL (4.0-5.20); Red Cell Distribution Width 13.1 % (11.8-14.3); White Blood Cell 15.8 10^3/uL (4.4-10.8)
[2022-01-30 23:50] VITALS: BP 120/48
[2022-01-30 23:52] LABS: Potassium 4.4 mmol/L (3.5-5.1)
[2022-01-30 23:57] LABS: Albumin 3.3 g/dL (3.4-5.0); BUN/Creatinine Ratio 42.6; Calcium 9.7 mg/dL (8.5-10.1)
[2022-01-30 23:59] LABS: Bilirubin, Total 0.9 mg/dL (0.2-1.0); Total Protein 6.9 g/dL (6.4-8.2)
[2022-01-31 02:27] LABS: Urine Bacteria MANY /hpf (None Seen); Urine Blood Negative /uL (Negative); Urine Mucus FEW (None Seen); Urine Specific Gravity 1.027 (1.001-1.035); Urine WBC 44 /hpf (0 - 5)
[2022-01-31] MEDS ORDERED: CETI10TA2 PO (02:27)
[2022-01-31] MEDS ORDERED: BACL10TA PO (02:30)
[2022-01-31] MEDS ORDERED: LORA-655 PO (02:30)
[2022-01-31] MEDS ORDERED: GABA300C10 PO (02:30)
[2022-01-31] MEDS ORDERED: ONDANSETRON HCL 4 MG/2 ML VIAL IV PRN (03:00)
[2022-01-31] MEDS ORDERED: NITROGLYCERIN 0.4 MG SL TAB SL PRN (03:00)
[2022-01-31] MEDS ORDERED: cefTRIAXone 1GM/50ML D5W 50 ML IV ONE (03:00)
[2022-01-31] MEDS ORDERED: SODIUM CHLORIDE 0.9% 500 ML IV ONE (03:00)
[2022-01-31] MEDS ORDERED: SODIUM CHLORIDE 0.9% 250 ML IV ONE (03:00)
[2022-01-31] MEDS ORDERED: MORPHINE SULFATE INJECTION 2 MG/ML SYRG IV PRN (03:00)
[2022-01-31 03:25] LABS: INR 1.23 (0.9-1.15); Partial Thromboplastin Time 35.3 sec (23.6-33.0)
[2022-01-31] MEDS: ALBUTEROL SULF 2.5 MG/0.5ML(0.5%) NEB SOLN NEB PRN ×3 (05:20→18:04)
[2022-01-31] MEDS: BUDESONIDE (INHALATION) 0.5 MG/2 ML NEB NEB SCH ×2 (05:21→18:04)
[2022-01-31] MEDS ORDERED: IOHEXOL 350 MG/ML 100ML IJ ONE (06:12)
[2022-01-31] MEDS: GABAPENTIN 300 MG CAP PO SCH ×3 (06:14→20:29)
[2022-01-31] MEDS: HYDROcodone-ACET 5/325MG TAB PO PRN ×3 (07:36→20:30)
[2022-01-31] MEDS: PANTOPRAZOLE 40 MG TAB PO SCH (09:59)
[2022-01-31] MEDS: amLODIPine BESYLATE 5 MG TAB PO SCH (10:00)
[2022-01-31] MEDS ORDERED: WARFARIN SODIUM 2.5 MG TAB PO ONE (17:00)
[2022-01-31] MEDS: methylPREDNISolone SOD SUCC 40 MG/ML VL IV SCH (20:29)
[2022-01-31 22:00] VITALS: BP 141/73
[2022-02-01] MEDS: ACETAMINOPHEN 325 MG TAB PO PRN ×3 (01:41→16:22)
[2022-02-01] MEDS: HYDROcodone-ACET 5/325MG TAB PO PRN ×4 (04:33→23:56)
[2022-02-01] MEDS: GABAPENTIN 300 MG CAP PO SCH ×3 (04:33→22:29)
[2022-02-01 05:00] VITALS: BP 126/67
[2022-02-01 05:14] LABS: Basophils # (auto) 0.1 10 ^3/uL (0-0.2); Basophils % (auto) 0.5 % (0.0-2.0); Eosinophils # (auto) 0.1 10 ^3/uL (0-0.8); Eosinophils % (auto) 0.4 % (0.0-7.0); Hematocrit 37.4 % (36.0-46.0); Hemoglobin 12.8 g/dL (12.2-16.2); Lymphocytes # (auto) 0.8 10 ^3/uL (0.4-5.4); Lymphocytes % (auto) 5.4 % (10.0-50.0); Mean Corpuscular Hemoglobin 30.9 pg (28.0-32.0); Mean Corpuscular Hgb Conc. 34.1 g/dL (32.0-36.0); Mean Corpuscular Volume 90.4 fL (80.0-100.0); Monocytes # (auto) 0.9 10 ^3/uL (0-1.3); Neutrophils # (auto) 12.6 10 ^3/uL (1.6-8.6); Neutrophils % (auto) 87.7 % (37.0-80.0); Nucleated Red Blood Cells % 0.1 %; Red Blood Cells 4.13 10^6/uL (4.0-5.20); Red Cell Distribution Width 12.9 % (11.8-14.3); White Blood Cell 14.3 10^3/uL (4.4-10.8)
[2022-02-01 05:30] LABS: Albumin 2.5 g/dL (3.4-5.0); Calcium 9.6 mg/dL (8.5-10.1); INR 1.14 (0.9-1.15); Potassium 3.8 mmol/L (3.5-5.1)
[2022-02-01 05:34] LABS: Bilirubin, Total 0.6 mg/dL (0.2-1.0); Total Protein 7.1 g/dL (6.4-8.2)
[2022-02-01] MEDS: BUDESONIDE (INHALATION) 0.5 MG/2 ML NEB NEB SCH ×2 (06:18→22:25)
[2022-02-01] MEDS: ALBUTEROL SULF 2.5 MG/0.5ML(0.5%) NEB SOLN NEB PRN ×3 (06:18→22:25)
[2022-02-01 09:00] VITALS: BP 148/78
[2022-02-01] MEDS: amLODIPine BESYLATE 5 MG TAB PO SCH (10:08)
[2022-02-01] MEDS: methylPREDNISolone SOD SUCC 40 MG/ML VL IV SCH ×2 (10:08→22:29)
[2022-02-01] MEDS: cefTRIAXone 1GM/50ML D5W 50 ML IV SCH (10:08)
[2022-02-01] MEDS: PANTOPRAZOLE 40 MG TAB PO SCH (10:09)
[2022-02-01 13:00] VITALS: BP 166/87
[2022-02-01 17:00] VITALS: BP 164/118
[2022-02-01] MEDS: WARFARIN SODIUM 2 MG TAB PO ONE ×2 (17:06→17:23)
[2022-02-01 22:00] VITALS: BP 151/85
[2022-02-01] MEDS: LORazepam 0.5 MG TAB PO PRN (22:29)
[2022-02-02] MEDS: ACETAMINOPHEN 325 MG TAB PO PRN ×2 (02:14→09:09)
[2022-02-02 05:00] VITALS: BP 156/86
[2022-02-02] MEDS: BUDESONIDE (INHALATION) 0.5 MG/2 ML NEB NEB SCH ×2 (06:29→17:47)
[2022-02-02] MEDS: ALBUTEROL SULF 2.5 MG/0.5ML(0.5%) NEB SOLN NEB PRN ×2 (06:29→17:47)
[2022-02-02 06:40] LABS: Hemoglobin 14.4 g/dL (12.2-16.2); Mean Corpuscular Hemoglobin 30.2 pg (28.0-32.0); Mean Corpuscular Hgb Conc. 33.4 g/dL (32.0-36.0); Mean Corpuscular Volume 90.4 fL (80.0-100.0); Red Blood Cells 4.75 10^6/uL (4.0-5.20); White Blood Cell 12.2 10^3/uL (4.4-10.8)
[2022-02-02] MEDS: HYDROcodone-ACET 5/325MG TAB PO PRN ×3 (06:43→21:05)
[2022-02-02 06:46] LABS: INR 1.67 (0.9-1.15); Partial Thromboplastin Time 37.8 sec (23.6-33.0)
[2022-02-02 06:48] LABS: Albumin 2.7 g/dL (3.4-5.0); Calcium 9.8 mg/dL (8.5-10.1); Potassium 3.5 mmol/L (3.5-5.1)
[2022-02-02 06:49] LABS: Band Neutrophils % (manual) 0; Basophils % (manual) 0 (0.0-2.0); Blast Cells 0; Eosinophils % (manual) 0 (0-7); Metamyelocytes % 0; Myelocytes % 0; Promyelocytes % 0; Reactive Lymphocytes 0
[2022-02-02 06:52] LABS: BUN/Creatinine Ratio 67.3; Bilirubin, Total 0.4 mg/dL (0.2-1.0)
[2022-02-02 07:34] LABS: Lymphocytes % (manual) 2 (10.0-50.0); Monocytes % (manual) 7 (0-12)
[2022-02-02 09:00] VITALS: BP 170/95
[2022-02-02] MEDS: methylPREDNISolone SOD SUCC 40 MG/ML VL IV SCH ×2 (09:08→21:16)
[2022-02-02] MEDS: cefTRIAXone 1GM/50ML D5W 50 ML IV SCH (09:08)
[2022-02-02] MEDS: PANTOPRAZOLE 40 MG TAB PO SCH (09:09)
[2022-02-02] MEDS: amLODIPine BESYLATE 5 MG TAB PO SCH (09:09)
[2022-02-02] MEDS: GABAPENTIN 300 MG CAP PO SCH ×2 (09:10→21:16)
[2022-02-02] MEDS ORDERED: GABA-339 PO (10:13)
[2022-02-02] MEDS ORDERED: MORP10SO SL (10:13)
[2022-02-02] MEDS ORDERED: HYDR-4798 PO (10:13)
[2022-02-02 13:00] VITALS: BP 164/89
[2022-02-02 17:00] VITALS: BP 141/90
[2022-02-02] MEDS ORDERED: WARFARIN SODIUM 2.5 MG TAB PO ONE (17:00)
[2022-02-02] MEDS: LORazepam 0.5 MG TAB PO PRN (21:17)
[2022-02-02 22:00] VITALS: BP 162/85
[2022-02-03] VITALS (7 sets, daily range): BP systolic 114–151; BP diastolic 50–77
[2022-02-03] MEDS: BUDESONIDE (INHALATION) 0.5 MG/2 ML NEB NEB SCH ×2 (06:33→18:36)
[2022-02-03] MEDS: HYDROcodone-ACET 5/325MG TAB PO PRN ×3 (07:30→22:33)
[2022-02-03] MEDS: cefTRIAXone 1GM/50ML D5W 50 ML IV SCH (08:01)
[2022-02-03] MEDS: methylPREDNISolone SOD SUCC 40 MG/ML VL IV SCH ×2 (08:01→22:26)
[2022-02-03] MEDS: GABAPENTIN 300 MG CAP PO SCH ×3 (08:02→22:27)
[2022-02-03] MEDS: amLODIPine BESYLATE 5 MG TAB PO SCH (08:02)
[2022-02-03] MEDS: PANTOPRAZOLE 40 MG TAB PO SCH (08:02)
[2022-02-03 08:08] LABS: Basophils # (auto) 0 10 ^3/uL (0-0.2); Basophils % (auto) 0.2 % (0.0-2.0); Eosinophils # (auto) 0 10 ^3/uL (0-0.8); Hematocrit 43.2 % (36.0-46.0); Hemoglobin 14.4 g/dL (12.2-16.2); Lymphocytes # (auto) 0.8 10 ^3/uL (0.4-5.4); Lymphocytes % (auto) 5.4 % (10.0-50.0); Mean Corpuscular Hemoglobin 29.9 pg (28.0-32.0); Mean Corpuscular Hgb Conc. 33.3 g/dL (32.0-36.0); Monocytes # (auto) 0.7 10 ^3/uL (0-1.3); Monocytes % (auto) 4.4 % (0.0-12.0); Nucleated Red Blood Cells % 0.1 %; Red Cell Distribution Width 12.9 % (11.8-14.3); White Blood Cell 15.5 10^3/uL (4.4-10.8)
[2022-02-03 08:22] LABS: INR 2.64 (0.9-1.15)
[2022-02-03 08:37] LABS: Albumin 2.7 g/dL (3.4-5.0); BUN/Creatinine Ratio 70.4; Bilirubin, Total 0.3 mg/dL (0.2-1.0); Calcium 10.1 mg/dL (8.5-10.1); Total Protein 7.9 g/dL (6.4-8.2)
[2022-02-03] MEDS: ALBUTEROL SULF 2.5 MG/0.5ML(0.5%) NEB SOLN NEB SCH ×2 (18:35→22:17)
[2022-02-03] MEDS: IPRATROPIUM BROM 0.5 MG/2.5ML INH SOL NEB SCH ×2 (18:36→22:17)
[2022-02-04 05:00] VITALS: BP 151/68
[2022-02-04] MEDS: GABAPENTIN 300 MG CAP PO SCH ×3 (05:25→22:37)
[2022-02-04] MEDS: HYDROcodone-ACET 5/325MG TAB PO PRN ×3 (05:27→22:37)
[2022-02-04] MEDS: BUDESONIDE (INHALATION) 0.5 MG/2 ML NEB NEB SCH ×2 (06:20→18:52)
[2022-02-04] MEDS: ALBUTEROL SULF 2.5 MG/0.5ML(0.5%) NEB SOLN NEB SCH ×5 (06:20→22:16)
[2022-02-04] MEDS: IPRATROPIUM BROM 0.5 MG/2.5ML INH SOL NEB SCH ×5 (06:21→22:16)
[2022-02-04 07:53] LABS: INR 2.47 (0.9-1.15); Partial Thromboplastin Time 33.8 sec (23.6-33.0)
[2022-02-04] MEDS: cefTRIAXone 1GM/50ML D5W 50 ML IV SCH (08:11)
[2022-02-04] MEDS: PANTOPRAZOLE 40 MG TAB PO SCH (08:12)
[2022-02-04] MEDS: methylPREDNISolone SOD SUCC 40 MG/ML VL IV SCH ×2 (08:12→22:36)
[2022-02-04] MEDS: amLODIPine BESYLATE 5 MG TAB PO SCH (08:13)
[2022-02-04 09:02] VITALS: BP 119/68
[2022-02-04 11:54] LABS: Hemoglobin 13.8 g/dL (12.2-16.2)
[2022-02-04 11:57] LABS: Hematocrit 41.8 % (36.0-46.0); Mean Corpuscular Hemoglobin 29.9 pg (28.0-32.0); Mean Corpuscular Hgb Conc. 33.1 g/dL (32.0-36.0); Mean Corpuscular Volume 90.4 fL (80.0-100.0); Red Blood Cells 4.62 10^6/uL (4.0-5.20); Red Cell Distribution Width 12.8 % (11.8-14.3); White Blood Cell 13.1 10^3/uL (4.4-10.8)
[2022-02-04 12:13] LABS: Basophils % (manual) 0 (0.0-2.0); Blast Cells 0; Eosinophils % (manual) 0 (0-7); Metamyelocytes % 0; Myelocytes % 0; Promyelocytes % 0; Reactive Lymphocytes 0
[2022-02-04 13:00] VITALS: BP 138/65
[2022-02-04 16:55] VITALS: BP 144/60
[2022-02-04 18:59] LABS: Band Neutrophils % (manual) 3; Lymphocytes % (manual) 7 (10.0-50.0); Monocytes % (manual) 6 (0-12)
[2022-02-04 20:00] VITALS: BP 154/73
[2022-02-04 22:00] VITALS: BP 154/73
[2022-02-05] MEDS: LORazepam 0.5 MG TAB PO PRN (01:29)
[2022-02-05 05:00] VITALS: BP 144/84
[2022-02-05] MEDS: GABAPENTIN 300 MG CAP PO SCH ×2 (05:50→13:52)
[2022-02-05] MEDS: HYDROcodone-ACET 5/325MG TAB PO PRN ×2 (05:51→13:52)
[2022-02-05] MEDS: ALBUTEROL SULF 2.5 MG/0.5ML(0.5%) NEB SOLN NEB SCH ×4 (06:28→18:42)
[2022-02-05] MEDS: IPRATROPIUM BROM 0.5 MG/2.5ML INH SOL NEB SCH ×4 (06:28→18:43)
[2022-02-05 07:18] LABS: Basophils # (auto) 0 10 ^3/uL (0-0.2); Eosinophils # (auto) 0 10 ^3/uL (0-0.8); Hematocrit 40.4 % (36.0-46.0); Hemoglobin 13.4 g/dL (12.2-16.2); Lymphocytes # (auto) 0.7 10 ^3/uL (0.4-5.4); Lymphocytes % (auto) 6.7 % (10.0-50.0); Mean Corpuscular Hemoglobin 30.1 pg (28.0-32.0); Mean Corpuscular Hgb Conc. 33.1 g/dL (32.0-36.0); Monocytes # (auto) 0.5 10 ^3/uL (0-1.3); Monocytes % (auto) 4.4 % (0.0-12.0); Neutrophils # (auto) 9.4 10 ^3/uL (1.6-8.6); Neutrophils % (auto) 88.9 % (37.0-80.0); Red Blood Cells 4.44 10^6/uL (4.0-5.20); Red Cell Distribution Width 12.8 % (11.8-14.3); White Blood Cell 10.6 10^3/uL (4.4-10.8)
[2022-02-05 07:28] LABS: INR 2.1 (0.9-1.15)
[2022-02-05 09:00] VITALS: BP 124/64
[2022-02-05] MEDS: methylPREDNISolone SOD SUCC 40 MG/ML VL IV SCH (09:38)
[2022-02-05] MEDS: cefTRIAXone 1GM/50ML D5W 50 ML IV SCH (09:38)
[2022-02-05] MEDS: PANTOPRAZOLE 40 MG TAB PO SCH (09:38)
[2022-02-05] MEDS: amLODIPine BESYLATE 5 MG TAB PO SCH (09:39)
[2022-02-05] MEDS: BUDESONIDE (INHALATION) 0.5 MG/2 ML NEB NEB SCH (10:08)
[2022-02-05 12:45] VITALS: BP 141/69
[2022-02-05] MEDS ORDERED: AZITTAB PO (14:53)
[2022-02-05] MEDS ORDERED: METH4PAK PO (14:53)
[2022-02-05 17:00] VITALS: BP 142/82
[2022-02-05] MEDS ORDERED: WARFARIN SODIUM 2 MG TAB PO ONE ×2 (17:00)
[2022-02-05 20:15] VITALS: BP 142/82
== END 2022-02-05 20:16 | disposition home or self-care (01) | DRG 189 ==
LOC: EDBD 22:13 → ER 22:17 → OVERFLOW 01-31 02:55 → TELE-WESTW 01-31 18:21
PROVIDERS: ADMIT Nurse Practitioner; ATTEND Internal Medicine
PROC: 5A09357 Assistance with Respiratory Ventilation, Less than 24 Consecutive Hours, Continuous Positive Airway Pressure (ICD-10-PCS; principal; 2022-01-30)
DX: J96.21 Acute and chronic respiratory failure with hypoxia (principal); N39.0 Urinary tract infection, site not specified; Z68.1 Body mass index [BMI] 19.9 or less, adult; R64 Cachexia; E78.5 Hyperlipidemia, unspecified; I11.0 Hypertensive heart disease with heart failure; E11.9 Type 2 diabetes mellitus without complications; M54.9 Dorsalgia, unspecified; R79.89 Other specified abnormal findings of blood chemistry; G89.4 Chronic pain syndrome; I50.9 Heart failure, unspecified; J43.9 Emphysema, unspecified; Z90.710 Acquired absence of both cervix and uterus; Z79.51 Long term (current) use of inhaled steroids; Z86.711 Personal history of pulmonary embolism; Z99.81 Dependence on supplemental oxygen; Z87.891 Personal history of nicotine dependence; Z79.899 Other long term (current) drug therapy; Z88.1 Allergy status to other antibiotic agents; Z88.5 Allergy status to narcotic agent; Z88.8 Allergy status to other drugs, medicaments and biological substances
CPT/HCPCS: 36415; 36600; 71045; 71275; 80053; 81001; 82805; 83605; 83880; 84484; 85007; 85025; 85027; 85379; 85610; 85730; 87040; 93005; 94640; 94660; 96361; 96365; 97163; 99291; G0378; J0696